=== PATIENT | female | born 1955 | race Caucasian/White ===

== ENCOUNTER 2019-01-24 08:00 | Outpatient (CLI) | payer MEDICARE | END 2019-01-24 23:59 | disposition home or self-care (01) | LOC: D.MAMMO 08:00 | PROVIDERS: ATTEND Family Medicine | DX: Z12.31 Encounter for screening mammogram for malignant neoplasm of breast (principal) ==

== ENCOUNTER 2019-02-28 09:00 | Outpatient (CLI) | payer OTHER | END 2019-02-28 10:00 | disposition home or self-care (01) | LOC: D.MAMMO 09:00 | PROVIDERS: ATTEND Family Medicine | DX: R92.8 Other abnormal and inconclusive findings on diagnostic imaging of breast (principal) ==

== ENCOUNTER → 2019-03-09 08:28 | Outpatient (CLI) | payer OTHER | END | disposition home or self-care (01) | LOC: D.US 08:28 | PROVIDERS: ATTEND Family Medicine | DX: N63.10 Unspecified lump in the right breast, unspecified quadrant (principal) ==

== ENCOUNTER 2019-03-27 11:08 | Outpatient (CLI) | payer OTHER ==
[~2019-03-27] VITALS: Ht 160 cm; Wt 64.5 kg
[2019-03-27 11:28] VITALS: Ht 160 cm; Wt 64.5 kg
--- NOTE | 2019-03-27 12:00 | NUR ---
ROUNDING ON PT AT THIS TIME, AFTER 20 MINS POST INJECTION, PT EXHIBITS NO SIGNS OF REACTIONS, PT RESTING COMFORTABLY, NAD NOTED.
--- NOTE | 2019-03-27 12:01 | NUR ---
PT LEAVING OPS AT THIS TIME, NAD NOTED.
== END 2019-03-27 12:01 | disposition home or self-care (01) ==
LOC: D.OPS 11:08
PROVIDERS: ATTEND Family Medicine
DX: M81.0 Age-related osteoporosis without current pathological fracture (principal)

== ENCOUNTER 2019-10-02 11:21 | Outpatient (CLI) | payer OTHER ==
[~2019-10-02] VITALS: Ht 160 cm; Wt 65.9 kg
[2019-10-02 11:43] VITALS: BP 123/79; Ht 160 cm; Wt 65.9 kg
== END 2019-10-02 11:50 | disposition home or self-care (01) ==
LOC: D.OPS 11:21
PROVIDERS: ATTEND Family Medicine
DX: M81.0 Age-related osteoporosis without current pathological fracture (principal)